=== PATIENT | male | born 1975 | race Hispanic/Latino ===

== ENCOUNTER → 2018-02-26 | Day surgery (SDC) | payer OTHER ==
[2018-02-24 11:15] LABS: BASOPHILS % 0.4 % (0.0-1.0); EOSINOPHILS # (AUTO) 0.2 (0.0-0.4); HEMATOCRIT 43.3 % (38.2-49.6); HEMOGLOBIN 15.1 g/dL (14.0-18.0); LYMPHOCYTES % 20.4 % (18.0-39.1); MEAN CORPUSCULAR HEMOGLOBIN 30.5 pg (28-32); MEAN CORPUSCULAR HGB CONC 34.9 g/dL (31-35); MEAN CORPUSCULAR VOLUME 87.5 fL (81-99); MONOCYTES # (AUTO) 0.9 (0.2-0.8); MONOCYTES % 9.1 % (4.4-11.3); NEUTROPHILS # (AUTO) 6.6 (2.1-6.9); NEUTROPHILS % 67.6 % (38.7-80.0); PLATELET COUNT 249 x10e3/uL (140-360); RED BLOOD COUNT 4.95 x10e6/uL (4.3-5.7); RED CELL DISTRIBUTION WIDTH 12.2 % (11.7-14.4)
[2018-02-24 11:30] LABS: ANION GAP 14.6 mmol/L (8-16); BLOOD UREA NITROGEN 12 mg/dL (7-26); BUN/CREATININE RATIO 14 (6-25); CALCIUM 9.9 mg/dL (8.4-10.2); CARBON DIOXIDE 28 mmol/L (22-29); CHLORIDE 104 mmol/L (98-107); CREATININE, SERUM 0.85 mg/dL (0.72-1.25); EST GLOMERULAR FILTRATION RATE > 60 ML/MIN (60-); GLUCOSE 103 mg/dL (74-118); POTASSIUM 4.6 mmol/L (3.5-5.1); SODIUM 142 mmol/L (136-145)
[~2018-02-26] MED LIST: BLOOD PRESSURE MED PO; BUPIVACAINE 0.25%/EPI 30ML SDV INJ ONE; CEFAZOLIN SOD 1 GM VIAL ONE; DEXAMETHASONE SOD PHOS INJ 4 MG/ML VIAL ONE; EPHEDRINE SULFATE INJ 50 MG/10 ML SYR ONE; FENTANYL CITRATE/PF 100MCG/2 ML INJ ONE; GLYCOPYRROLATE INJ 1MG/ 5 ML SYR ONE; KETOROLAC TROMETHAMINE 30 MG/ML VIAL ONE; LIDOCAINE HCL 2% LOCAL INJ 5 ML SDV VIAL INJ ONE; LOSARTAN POTASS25 MG; MIDAZOLAM HCL 2 MG/2 ML VIAL ONE; MORPHINE SULFATE INJ 10 MG/ML ONE; NEOSTIGMINE 1 MG/ML 10ML VIAL ONE; NEOSTIGMINE 5 MG/5ML SYR ONE; ONDANSETRON HCL INJ 2 MG/ML VIAL ONE; PROPOFOL IV EMULSION 10 MG/ML 20 ML VIAL ONE; ROCURONIUM BROMIDE 10 MG/ML 5ML VIAL ONE
--- NOTE | 2018-02-26 14:00 | Operative Report ---
DATE OF PROCEDURE: February 26, 2018 PREOPERATIVE DIAGNOSES 1. Periumbilical hernia. 2. Umbilical lesion. 3. Morbid obesity. PROCEDURES PERFORMED 1. Repair of periumbilical ventral hernia with mesh. 2. Omphalectomy due to the skin lesion. ANESTHESIA: General endotracheal. ESTIMATED BLOOD LOSS: Minimal. DRAINS: None. COMPLICATIONS: None. OIL WELL LOGGER: TACOS Saldana INDICATIONS AND FINDINGS: The patient is a morbidly obese 42-year-old male admitted for repair of symptomatic umbilical hernia. The patient also complained of serous drainage from an umbilical lesion. INTRAOPERATIVE FINDINGS: The patient had a periumbilical hernia with herniation of properitoneal fat. There was a lesion located deep in the pit of the umbilicus. An omphalectomy was performed that included the lesion and allowed ease of access through the repair of the hernia in this morbidly obese male. DESCRIPTION OF PROCEDURE: With the patient lying on the operative table in the supine position and after administration of general anesthesia, he was prepped and draped for repair of a periumbilical hernia. An elliptical incision was made around the umbilicus that encompassed the umbilical and the skin, as well as the lesion in the pit of the umbilicus. The dissection was carried down through the skin and subcutaneous tissue until the hernia was identified. It was dissected free from the surrounding tissues. It consisted of properitoneal fat. The properitoneal fat was excised, and bleeders were tied off with 2-0 Vicryl. Then the intra-abdominal cavity was entered. The Proceed ventral patch medium size mesh was deployed laying flat against the abdominal wall. At this point, we secured the mesh with a series of interrupted 0 Ethibond sutures through the straps that were placed laterally, and then several stitches were placed in the superior and inferior aspect of the umbilical defect to prevent any mesh migration. After we did that, we cut the straps and then closed the fascial edges of over the mesh with a series of interrupted 0 Ethibond sutures also. The wound was irrigated. Bleeding points were cauterized. Then after we performed an instrument count and it was correct, we closed the wound in layers using 0 Vicryl for the soft tissues and to recreate the umbilical dimple, and then 2-0 0 Vicryl for the subcuticular plane. The skin was closed using interrupted 3-0 silk vertical mattress sutures. Sterile dressing was applied. The patient tolerated the procedure well, and taken to the recovery room in stable condition. Job#: [id number]
== END | disposition home or self-care (01) ==
LOC: OR 06:50
PROVIDERS: ATTEND Surgery
DX: K42.9 Umbilical hernia without obstruction or gangrene (principal); L98.8 Other specified disorders of the skin and subcutaneous tissue; E66.01 Morbid (severe) obesity due to excess calories; I10 Essential (primary) hypertension; Z01.810 Encounter for preprocedural cardiovascular examination; Z68.41 Body mass index [BMI] 40.0-44.9, adult
CPT/HCPCS: 36415; 49585; 80048; 85025; 88304; 93005; C1781; J0690; J1100; J1885; J2001; J2250; J2270; J2405; J2710; J3490; 88302